=== PATIENT | female | born 1975 | race Caucasian/White ===

== ENCOUNTER 2023-03-12 08:00 | Outpatient (RCR) | payer SELFPAY ==
[~2023-03-12 08:00] MED LIST: ADDERALL XR30 MG PO; CYCLOBENZAPRINE10 M1 PO; KLONOPIN 1MG1 MG PO; MELOXICAM7.5 MG PO; NORCO 325 MG-51 TA1 PO; PRISTIQ100 MG PO; UNITHROID175 MCG PO
== END 2023-03-26 | disposition home or self-care (01) ==
LOC: PT 08:00
DX: M51.36 Other intervertebral disc degeneration, lumbar region (principal)

== ENCOUNTER 2023-04-02 08:00 | Outpatient (RCR) | payer SELFPAY | END 2023-04-26 | disposition home or self-care (01) | LOC: PT | DX: M51.36 Other intervertebral disc degeneration, lumbar region (principal) ==

== ENCOUNTER 2023-04-28 08:00 | Outpatient (RCR) | payer SELFPAY | END 2023-05-27 | disposition home or self-care (01) | LOC: PT | DX: M51.36 Other intervertebral disc degeneration, lumbar region (principal) ==

== ENCOUNTER 2023-05-28 08:00 | Outpatient (RCR) | payer SELFPAY | END 2023-06-23 13:00 | disposition home or self-care (01) | LOC: PT 08:00 | DX: M51.36 Other intervertebral disc degeneration, lumbar region (principal) ==

== ENCOUNTER → 2023-10-16 | Outpatient (CLI) | payer SELFPAY | LOC: RAD 11:37 | DX: S83.511A Sprain of anterior cruciate ligament of right knee, initial encounter (principal); S80.01XA Contusion of right knee, initial encounter; M71.21 Synovial cyst of popliteal space [Baker], right knee; X58.XXXA Exposure to other specified factors, initial encounter ==

== ENCOUNTER 2024-03-11 08:36 | Emergency (ER) | payer SELFPAY ==
[~2024-03-11] VITALS: Ht 162.6 cm; Wt 79.5 kg
[2024-03-11 08:40] VITALS: BP 151/82
[2024-03-11] MEDS ORDERED: ACETAMINOPHEN-H1 TA2 PO (08:51)
[2024-03-11] MEDS ORDERED: ONDANSETRON HYDR4 MG PO (08:51)
[2024-03-11] MEDS ORDERED: MELOXICAM15 MG PO (08:51)
[2024-03-11 09:05] LABS: BASO # 0.04 K/mm3 (0.02-0.10); EOS # 0.28 K/mm3 (0.04-0.40); EOS % 4.1 % (1.0-5.0); HEMATOCRIT 33.7 % (37.0-47.0); HEMOGLOBIN 11.5 g/dL (12.5-16.0); LYMPH# 1.31 K/mm3 (1.50-4.00); MEAN CELL VOLUME 94 fl (78-100); MEAN CORPUSCULAR HEMOGLOBIN 32 pg (27-31); MEAN CORPUSCULAR HGB CONC 34 g/dL (33-37); MEAN PLATELET VOLUME 9.2 fl (7.4-10.4); MONO # 0.91 K/mm3 (0.20-0.80); NEU # 4.27 K/mm3 (1.40-6.50); PLATELET COUNT 335 K/mm3 (130-400); RED BLOOD COUNT 3.57 M/mm3 (4.10-5.30); RED CELL DISTRIBUTION WIDTH 11.7 % (11.5-14.5); WHITE BLOOD COUNT 6.8 K/mm3 (4.8-10.8)
[2024-03-11 09:14] LABS: ALBUMIN 3.6 g/dL (3.5-5.0)
[2024-03-11 09:15] LABS: CALCIUM 8.9 mg/dL (8.3-10.5)
[2024-03-11 09:16] LABS: TOTAL PROTEIN 6.2 g/dL (6.4-8.3)
[2024-03-11 09:16] LABS: URINE WBC 0 /hpf (0-3)
[2024-03-11 09:18] LABS: TOTAL BILIRUBIN 0.3 mg/dL (0.2-1.2)
[2024-03-11 09:30] LABS: URINE APPEARANCE CLEAR (CLEAR); URINE COLOR LIGHT YELLOW (YELLOW)
[2024-03-11 09:31] LABS: URINE BILIRUBIN NEGATIVE (NEGATIVE); URINE BLOOD NEGATIVE (NEGATIVE); URINE GLUCOSE NEGATIVE (NEGATIVE); URINE KETONE NEGATIVE (NEGATIVE); URINE LEUKOCYTE ESTERASE NEGATIVE (NEGATIVE); URINE NITRATE NEGATIVE (NEGATIVE); URINE PROTEIN(semi-quant) NEGATIVE (NEGATIVE)
[2024-03-11] MEDS ORDERED: DICLOFENAC SODIUM3% TP (09:43)
[2024-03-11] MEDS ORDERED: NARCAN4 MG NS (09:43)
[2024-03-11] MEDS ORDERED: diphenhydrAMINE 50 MG/ML 1 ML VIAL IV ONE (09:45)
[2024-03-11] MEDS ORDERED: [UNRECOGNIZED DRUG - MIXTURE] TP (09:53)
== END 2024-03-11 10:07 | disposition home or self-care (01) ==
LOC: ED 08:36
PROVIDERS: Family Medicine
DX: M54.2 Cervicalgia (principal); R06.02 Shortness of breath; H53.8 Other visual disturbances; R07.9 Chest pain, unspecified; M54.50 Low back pain, unspecified; G89.29 Other chronic pain; F17.210 Nicotine dependence, cigarettes, uncomplicated; F17.290 Nicotine dependence, other tobacco product, uncomplicated; Z98.890 Other specified postprocedural states; Z87.39 Personal history of other diseases of the musculoskeletal system and connective tissue
CPT/HCPCS: J1200